=== PATIENT | female | born 1990 | race Asian ===

== ENCOUNTER → 2017-04-06 | Outpatient (CLI) | payer OTHER ==
--- NOTE | 2017-04-06 15:03 | MAMMOGRAPHY REPORT ---
ULTRASOUND OF BOTH BREASTS: 04/06/2017 CLINICAL HISTORY: Patient's provider felt a lump in the left breast on recent physical exam, and yeimy ent thinks she also personally feels a lump in the right breast as well. No skin erythema or nipple discharge. No family history of breast cancer. COMPARISON: No prior exams were available for comparison. FINDINGS: Targeted ultrasound was performed in the area of palpable lump pointed out by the patient which was initially felt by her provider in the 4:00 periareolar left breast. This area, there is a circumscribed hypoechoic parallel solid mass measuring 2.2 x 1.2 x 2.2 cm. Additional scanning perfo rmed in the lateral right breast 7:00 to 10:00 axes, in the area of possible additional lump discover ed by the patient, demonstrates sonographically normal tissue without evidence of a discrete solid or cystic mass. IMPRESSION: ACR BI-RADS CATEGORY 4: SUSPICIOUS - FOLLOW-UP RECOMMENDED 1. Ultrasound-guided core biopsy is recommended for an indeterminate solid palpable 2.2 cm mass in t he 4:00 periareolar left breast, thought to correlate with the palpable lump identified by the sebas t's provider. 2. No suspicious sonographic abnormality or evidence of malignancy in the lateral right breast in th e area of possible additional mass identified by the patient. These results and recommendations were discussed with the patient at the time of the exam. She tenta tively scheduled the left breast biopsy prior to leaving our department. Dalia Monteiro M.D. ay/:04/06/2017 09:17:48 Attending Technologist: Brandi GARCIA(Cj)(M), [facility] Ring Attacher: Dr. Dalia Monteiro, [facility] letter sent: Abnormal 4/5 BI-RADS Code: ACR BI-RADS Category 4: Suspicious
== END | disposition home or self-care (01) ==
LOC: C.MAMM 08:42
PROVIDERS: ATTEND Physician Assistant Medical
DX: N63.20 Unspecified lump in the left breast, unspecified quadrant (principal)

== ENCOUNTER → 2017-04-22 | Outpatient (CLI) | payer OTHER ==
--- NOTE | 2017-04-22 09:55 | Discharge Instructions ---
Discharge Instructions Procedure Procedure Date: Apr 22, 2017. Reason for visit: Left Palpable Mass. Discharge Discharge Date: Apr 22, 2017. Discharge Diagnosis: status post breast biopsy Instructions Activity Recommendations: Additional Limitations (see below) Return to School/Work: no limitations Recommended Home Diet: No Limitations Provider Instructions: ACTIVITY RECOMMENDATIONS: * No lifting, pushing, pulling or exercising the affected side for three days. RETURN TO SCHOOL/WORK: * You may return to work/school after the procedure, but do not perform any strenuous activities for 24 to 48 hours. MEDICATIONS: * Tylenol (two 325 mg) every four to six hours if needed for mild pain (if not allergic to Tylenol). DIET: * Resume previous diet. SPECIAL CARE INSTRUCTIONS: * Keep biopsy site dry for 24 hours. May shower after 24 hours, but do not soak (bathe) incision. * May remove Tegaderm (plastic patch) tomorrow AFTER showering. * Leave the steri-strips on for one week. Allow the steri-strips to fall off by themselves. If not off after one week, you may remove them. You may place a Bandaid crosswise over the strips, if desired. * Apply ice 10 minutes on and 10 minutes off as needed. * Wear a bra at bedtime to sleep more comfortably for 2-3 days. * Your referring physician should have the results after approximately 5 to 7 business days. * Call for unusual bleeding, fever, drainage, etc or if you have any questions call during normal business hours or after hours call Dr Wilburn, [phone]. FOLLOW UP VISIT: Follow-up with Referring Physician as scheduled. Leah Fariasy Recommendations: Call your doctor if: * Temperature above 101 degrees * Pain not relieved by pain medicine ordered * There is increased drainage or redness from any incision * You have any unanswered questions or concerns. Your Doctors Instructions noted above were prepared by provider Adriane Wilburn. Patient Signature Section: Patient Instructions Signature Page Noble Short Patient (or Guardian) Signature/Date: I have read and understand the instructions given to me by my caregivers. Caregiver/RN/Doctor Signature/Date: The above-named patient and/or guardian has received patient instructions on this date. + Original Patient Signature Page (only) stays with chart. Please make copy for patient.
--- NOTE | 2017-04-22 13:45 | MAMMOGRAPHY REPORT ---
ULTRASOUND GUIDED BIOPSY LEFT BREAST: 04/22/2017 CLINICAL HISTORY: Left 4:00 breast mass. PATIENT CONSENT: The procedure, risks and benefits were discussed with the patient and informed writt en consent was obtained. The patient requested not to have a clip placed. A timeout was performed i mmediately prior to the procedure. PROCEDURE DESCRIPTION: With ultrasound guidance, aseptic technique, and lidocaine as the local anesth etic (1% lidocaine to anesthetize the skin and 1% lidocaine with epinephrine to anesthetize the deepe r tissues), the mass of concern in the left 4:00 breast was sampled 4 times with a 14-gauge Achieve b iopsy needle. Direct pressure was applied to the site immediately post procedure and hemostasis was achieved. The patient tolerated the procedure without complication. She was given wound care instr uctions. The specimens were sent to pathology for analysis. COMPARISON: Comparison is made to exam dated: 04/06/2017 ultrasound - [facility]. IMPRESSION: ULTRASOUND GUIDED BIOPSY Ultrasound guided core needle biopsy of the left 4:00 breast mass. A clip was not placed due to yeimy ent request. The patient will receive pathology results from her referring provider. Adriane Wilburn M.D. /:04/22/2017 09:56:04 Lift Electrician: Maribel BOLDEN)([place]), [facility]
== END | disposition home or self-care (01) ==
LOC: C.MAMM 09:21
PROVIDERS: ATTEND Physician Assistant Medical
DX: R92.8 Other abnormal and inconclusive findings on diagnostic imaging of breast (principal); N63.20 Unspecified lump in the left breast, unspecified quadrant; D24.2 Benign neoplasm of left breast